=== PATIENT | male | born 1940 | race Caucasian/White ===

== ENCOUNTER → 2022-01-29 | Outpatient (CLI) | payer SELFPAY, OTHER ==
--- NOTE | 2022-01-29 09:40 | RAD_ITS ---
INDICATION: exterminator use of Amiodarone EXAMINATION/TECHNIQUE: X-RAY - XR Chest 2 Views COMPARISON: None. FINDINGS: LINES/DEVICES: None. LUNGS: Peribronchial cuffing and bilateral hilar prominence is seen. No evidence of areas of for peripheral consolidation, biapical prominence but no evidence of emphysematous changes are seen. No evidence of prominent interstitial changes is seen. The bronchovascular and interstitial lung markings are unremarkable, no evidence of focal lung infiltrate or consolidation. No evidence of parenchymal contusion or pneumothorax. MEDIASTINUM AND CARDIOVASCULAR STRUCTURES: Cardiac silhouette is within upper limits of normal, would recommend correlation with prior studies whenever they become available and follow-up evaluation. BONES AND SOFT TISSUES: Degenerative bone changes.. RAD/Chest PA and Lateral IMPRESSION: No evidence of significant cardiomegaly, no evidence of prominent interstitial lung changes, recommend correlation with pre treatment chest xrays when they become available. Electronically Signed: Abran Foote MD at 12:38 EDT ,
[2022-01-29 12:11] LABS: Anion Gap 7 (5-15); BUN 31 mg/dL (7-18); BUN/Creat Ratio 21.7 RATIO (10-20); Chloride 105 mmol/L (98-107); Creatinine, Serum 1.43 mg/dL (0.70-1.30); EST Glomerular Filtration Rate 51 mL/min (>60); Est Glom Filt Rate - Afr Amer 61 mL/min (>60); Glucose 74 mg/dL (74-106); Potassium 4.2 mmol/L (3.5-5.1); Sodium Level 143 mmol/L (136-145); T4 Free Direct 1.03 ng/dL (0.76-1.46); Thyroid Stim Hormone (TSH) 2.14 uIU/mL (0.358-3.74)
== END | disposition home or self-care (01) ==
PROVIDERS: Referring Provider Nurse Practitioner Gerontology; Visit Provider Nurse Practitioner Gerontology
DX: Z79.899 Other long term (current) drug therapy (principal)
CPT/HCPCS: 36415; 71046; 80048; 84439; 84443

== ENCOUNTER → 2022-04-16 | Outpatient (CLI) | payer OTHER, SELFPAY ==
[2022-04-16 11:22] LABS: Anion Gap 5 (5-15); BUN 29 mg/dL (7-18); BUN/Creat Ratio 23.2 RATIO (10-20); Calcium,Total 9.1 mg/dL (8.5-10.1); Chloride 106 mmol/L (98-107); Creatinine, Serum 1.25 mg/dL (0.70-1.30); EST Glomerular Filtration Rate 59 mL/min (>60); Est Glom Filt Rate - Afr Amer 71 mL/min (>60); Glucose 74 mg/dL (74-106); Potassium 4.2 mmol/L (3.5-5.1); Sodium Level 139 mmol/L (136-145)
== END | disposition home or self-care (01) ==
LOC: LAB 09:40
PROVIDERS: PCP Family Medicine; Referring Provider Nurse Practitioner Gerontology; Visit Provider Nurse Practitioner Gerontology
DX: I42.8 Other cardiomyopathies (principal)
CPT/HCPCS: 36415; 80048

== ENCOUNTER 2022-05-02 09:14 | Outpatient (CLI) | payer SELFPAY, OTHER ==
--- NOTE | 2022-05-02 09:17 | ECHOD_ITS ---
Version 2 Reason For Study: CMP Procedure This was a 2D Doppler, Color Flow transthoracic echocardiogram. Myocardial strain analysis was performed in this exam to aid in the assessment of cardiac function. Exam performed in department. Left Ventricle Normal LV size. Left ventricular systolic function is normal. The estimated ejection fraction is 60 %. No regional wall motion abnormalities noted. Right Ventricle Normal RV size. Normal systolic function. Atria Normal left atrium. Normal right atrium. Mitral Valve Normal mitral valve. Tricuspid Valve Normal tricuspid valve. Mild tricuspid valve insufficiency. Pulmonary artery systolic pressure is 27 mmHg. Aortic Valve Normal aortic valve. Trisinus/trileaflet aortic valve. Pulmonic Valve Normal pulmonic valve. Great Vessels Normal aortic root. The pulmonary artery is normal size. Normal inferior vena cava. Pericardium/Pleural No pericardial effusion. MMode/2D Measurements & Calculations LVIDd: 5.9 cm IVSd: 0.98 cm LAV(MOD-bp): 51.2 ml LVIDs: 4.3 cm LVPWd: 0.92 cm LAV(MOD-bp) Indexed: 30.5 ml/m2 RVDd: 4.8 cm FS: 28.2 % LAV(MOD-sp2): 65.3 ml LAV(MOD-sp4): 37.8 ml SV(MOD-sp4): 68.8 ml SV(sp4-el): 66.9 ml LVAd ap4: 37.6 cm2 LVLd ap4: 9.0 cm EDV(MOD-sp4): 133.6 ml EDV(sp4-el): 133.8 ml LVAs ap4: 24.7 cm2 LVLs ap4: 7.7 cm ESV(MOD-sp4): 64.8 ml ESV(sp4-el): 66.9 ml EF(MOD-sp4): 51.5 % EF(sp4-el): 50.0 % LA A4 area: 16.5 cm2 LA dimension(2D): 4.2 cm RA A4 area: 17.9 cm2 Time Measurements MV dec time: 0.36 sec Doppler Measurements & Calculations MV E max tommy: 56.5 cm/sec Lat Peak E' Tommy: 6.1 cm/sec Med Peak E' Tommy: 4.7 cm/sec MV A max tommy: 59.4 cm/sec E/E' lat: 9.3 E/E' med: 12.1 MV E/A: 0.95 MV V2 max: 72.7 cm/sec MV dec slope: 159.4 cm/sec2 Ao V2 max: 122.4 cm/sec MV max P.1 mmHg Ao max P.0 mmHg MV V2 mean: 33.8 cm/sec Ao V2 mean: 83.4 cm/sec MV mean P.59 mmHg Ao mean P.2 mmHg MV V2 VTI: 38.6 cm Ao V2 VTI: 27.3 cm LV V1 max: 127.5 cm/sec PA V2 max: 118.0 cm/sec TR max tommy: 240.9 cm/sec LV V1 max P.5 mmHg PA V2 mean: 71.7 cm/sec TR max P.2 mmHg LV V1 mean P.1 mmHg LV V1 mean: 81.8 cm/sec LV V1 VTI: 27.1 cm ECHO/Echo Complete Interpretation Summary Normal LV size. Left ventricular systolic function is normal. The estimated ejection fraction is 60 %. Mild tricuspid valve insufficiency. Pulmonary artery systolic pressure is 27 mmHg. The global longitudinal strain is normal. The global longitudinal strain = -17. 7 % (normal). Compared to previous study, the left ventricular systolic function has improved .. Ordering Physician: Sivan Rebolledo Referring Physician: Sivan Rebolledo Performed By: Caterina Kramer RCS
== END 2022-05-02 23:59 | disposition home or self-care (01) ==
LOC: CVS 09:16
PROVIDERS: PCP Family Medicine; Referring Provider Nurse Practitioner Gerontology; Visit Provider Nurse Practitioner Gerontology
DX: I42.8 Other cardiomyopathies (principal)
CPT/HCPCS: 93306

== ENCOUNTER → 2022-06-30 | Outpatient (CLI) | payer OTHER, SELFPAY | END | disposition home or self-care (01) | LOC: PSN 08:28 | PROVIDERS: PCP Family Medicine; Visit Provider Nurse Practitioner Gerontology | DX: I48.11 Longstanding persistent atrial fibrillation (principal); R00.1 Bradycardia, unspecified | CPT/HCPCS: 93225; 93226 ==

== ENCOUNTER → 2022-10-22 | Outpatient (CLI) | payer SELFPAY, OTHER ==
--- NOTE | 2022-10-22 08:34 | ECHOD_ITS ---
Reason For Study: Cardiomyopathy Procedure This was a 2D Doppler, Color Flow transthoracic echocardiogram. Exam performed in department. Left Ventricle Normal LV size. Mild concentric left ventricular hypertrophy. Left ventricular systolic function is normal. The estimated ejection fraction is 55 %. Stage 1 diastolic dysfunction. No regional wall motion abnormalities noted. Right Ventricle Normal RV size. Normal systolic function. Atria Normal left atrium. Normal right atrium. Bubble contrast study negative for right to left interatrial shunt. Mitral Valve Normal mitral valve. Tricuspid Valve Normal tricuspid valve. Mild tricuspid valve insufficiency. Pulmonary artery systolic pressure is 40 mmHg. Aortic Valve Trisinus/trileaflet aortic valve. Pulmonic Valve Normal pulmonic valve. Great Vessels Normal aortic root. Pericardium/Pleural No pericardial effusion. Medication 22 gauge I.V. with prn adaptor inserted into right arm. Performed a rapid injection of agitated mix of 9 cc saline and 1cc air to assess for atrial septal defect. MMode/2D Measurements & Calculations LVIDd: 5.2 cm IVSd: 1.4 cm Ao root diam: 3.8 cm LVIDs: 4.0 cm LVPWd: 1.2 cm LA dimension: 4.3 cm RVDd: 4.6 cm FS: 24.4 % LAV(MOD-bp): 46.8 ml LVAd ap4: 34.9 cm2 SV(MOD-sp4): 64.1 ml LAV(MOD-bp) Indexed: 27.9 ml/m2 LVLd ap4: 8.2 cm LAV(MOD-sp2): 51.3 ml EDV(MOD-sp4): 119.9 ml LAV(MOD-sp4): 40.7 ml EDV(sp4-el): 125.7 ml LVAs ap4: 21.5 cm2 LVLs ap4: 6.9 cm ESV(MOD-sp4): 55.7 ml ESV(sp4-el): 56.6 ml EF(MOD-sp4): 53.5 % EF(sp4-el): 55.0 % SV(sp4-el): 69.2 ml LA A4 area: 15.9 cm2 RA A4 area: 15.9 cm2 Time Measurements MV dec time: 0.21 sec Doppler Measurements & Calculations MV E max tommy: 43.8 cm/sec Lat Peak E' Tommy: 7.6 cm/sec Med Peak E' Tommy: 4.3 cm/sec MV A max tommy: 66.6 cm/sec E/E' lat: 5.8 E/E' med: 10.2 MV E/A: 0.66 MV V2 max: 68.3 cm/sec MV P1/2t max tommy: 42.0 cm/sec Ao V2 max: 124.0 cm/sec MV max P.9 mmHg MV P1/2t: 69.1 msec Ao max P.2 mmHg MV V2 mean: 30.7 cm/sec Ao V2 mean: 81.4 cm/sec MV mean P.45 mmHg MV dec slope: 177.8 cm/sec2 Ao mean P.0 mmHg MV V2 VTI: 25.3 cm MVA(P1/2t): 3.2 cm2 Ao V2 VTI: 30.2 cm AV (velocity ratio): 0.61 LV V1 max: 90.0 cm/sec PA V2 max: 149.3 cm/sec LV V1 max P.2 mmHg PI dec slope: 84.9 cm/sec2 LV V1 mean P.8 mmHg LV V1 mean: 63.9 cm/sec LV V1 VTI: 18.4 cm TR max tommy: 306.7 cm/sec TR max P.6 mmHg ECHO/Echo Complete Interpretation Summary Normal LV size. Left ventricular systolic function is normal. The estimated ejection fraction is 55 %. Bubble contrast study negative for right to left interatrial shunt. Mild concentric left ventricular hypertrophy. Stage 1 diastolic dysfunction. Pulmonary artery systolic pressure is 40 mmHg. Ordering Physician: Sivan Rebolledo Referring Physician: Sivan Rebolledo Performed By: Mika Garcia RCS
== END | disposition home or self-care (01) ==
LOC: CVS 08:30
PROVIDERS: PCP Family Medicine; Referring Provider Nurse Practitioner Gerontology; Visit Provider Nurse Practitioner Gerontology
DX: I42.8 Other cardiomyopathies (principal); I50.22 Chronic systolic (congestive) heart failure; I48.11 Longstanding persistent atrial fibrillation
CPT/HCPCS: 93306; A4216

== ENCOUNTER → 2022-10-27 | Outpatient (CLI) | payer OTHER, SELFPAY | END | disposition home or self-care (01) | LOC: PSN 08:48 | PROVIDERS: PCP Family Medicine; Referring Provider Nurse Practitioner Gerontology; Visit Provider Nurse Practitioner Gerontology | DX: R00.1 Bradycardia, unspecified (principal); I48.11 Longstanding persistent atrial fibrillation | CPT/HCPCS: 93225; 93226 ==

== ENCOUNTER → 2023-03-20 | Outpatient (CLI) | payer SELFPAY, OTHER ==
--- NOTE | 2023-03-20 09:50 | RAD_ITS ---
STUDY: XR Chest 2 Views 03/20/2023 9:49 AM REASON FOR EXAM: Male, 82 years old. for Cardioversion COMPARISON: 01/29/2022 TECHNIQUE: XR Chest 2 Views FINDINGS: There is no demonstrated pleural abnormality. Enlarged heart size. Normal mediastinum. Normal kalyani. Prominent appearing increased interstitial lung markings. Normal visualized pulmonary arteries. There is atherosclerotic calcification of the aortic arch with tortuosity. There are diffuse degenerative changes of the visualized thoracic spine. There is degenerative osteoarthritis of the bilateral shoulders. There are no acute findings of the upper abdomen. RAD/Chest PA and Lateral IMPRESSION: There are no acute findings. Electronically Signed: Olayinka Carreon MD at 14:18 EDT ,
[2023-03-20 10:17] LABS: Hematocrit 40.9 % (40-54); Hemoglobin 12.8 g/dL (13.0-16.5); Mean Corp Hgb Conc 31.3 g/dL (32-36); Mean Platelet Vol. 9.8 fl (6.2-12.0); Platelet Count 248 K/mm3 (150-450); RBC Distribution Width CV 14.5 % (11.6-14.6); RBC Distribution Width SD 51.4 fl (35.1-43.9); Red Blood Count 4.26 M/mm3 (4.6-6.2); White Blood Count 7.3 K/mm3 (4.4-11.0)
[2023-03-20 10:55] LABS: Anion Gap 4 (5-15); BUN 32 mg/dL (7-18); BUN/Creat Ratio 27.1 RATIO (10-20); Calcium,Total 8.7 mg/dL (8.5-10.1); Chloride 109 mmol/L (98-107); Creatinine, Serum 1.18 mg/dL (0.70-1.30); EST Glomerular Filtration Rate 63 mL/min (>60); Est Glom Filt Rate - Afr Amer 76 mL/min (>60); Glucose 76 mg/dL (74-106); Potassium 4.3 mmol/L (3.5-5.1); Sodium Level 139 mmol/L (136-145)
== END | disposition home or self-care (01) ==
PROVIDERS: PCP Family Medicine; Referring Provider Nurse Practitioner Family; Visit Provider Nurse Practitioner Family
DX: I42.8 Other cardiomyopathies (principal); I50.22 Chronic systolic (congestive) heart failure; I48.11 Longstanding persistent atrial fibrillation; Z79.899 Other long term (current) drug therapy
CPT/HCPCS: 36415; 71046; 80048; 85027

== ENCOUNTER → 2023-03-26 | Day surgery (SDC) | payer SELFPAY, OTHER ==
[2023-03-25 08:10] VITALS: BMI 23.1
--- NOTE | 2023-03-26 13:33 | PCM.OP.PRO ---
Procedure Report Date of Procedure: 03/26/23 CONSCIOUS SEDATION REPORT DATE OF SERVICE: March 26, 2023 BRIEF HISTORY OF PRESENT ILLNESS: The patient is an 83-year-old male who presented to [facility] for elective outpatient cardioversion due to underlying atrial fibrillation. The patient denied any prior anesthetic complications. He has never been diagnosed with COPD, asthma or obstructive sleep apnea. The patient is systemically anticoagulated on Eliquis. His last surface echocardiogram demonstrated an ejection fraction of approximately 55%. PHYSICAL EXAMINATION: VITAL SIGNS: Reviewed and were acceptable. GENERAL: The patient is a male, in no apparent distress, speaking in full sentences. HEENT: Normocephalic, atraumatic. Mucous membranes are moist and pink. Good mouth opening noted. Trachea is midline. CHEST: S1, S2 irregularly irregular. No murmurs, rubs or gallops were noted. LUNGS: Clear to auscultation bilaterally without appreciable wheezes, rales or rhonchi. ABDOMEN: Soft, nontender, nondistended. Positive bowel sounds. EXTREMITIES: There is no clubbing, cyanosis or edema. ASA Class: II DESCRIPTION OF PROCEDURE: After confirmation of informed consent, the patient's anesthesia plan was reviewed in detail. Propofol was chosen. Risks and benefits were reviewed and the patient agreed to proceed. At 1320, the patient was given 40 mg of propofol. The patient achieved an appropriate level of sedation and was given a 200 joule synchronized cardioversion by Dr. Aguilar at the bedside. This was successful in achieving normal sinus rhythm. The patient was monitored until 1333, at which time he reached his baseline mental status and function. The patient tolerated the procedure well. COMPLICATIONS: None ESTIMATED BLOOD LOSS: None RECOMMENDATIONS: Okay to recover in usual fashion. Procedures Pulmonary [id number]: [id number] Con Sedation
--- NOTE | 2023-03-26 16:37 | PCM.OP.PRO ---
Procedure Report Date of Procedure: 03/26/23 DC cardioversion. 83-year-old man with a history of atrial flutter who has been on anticoagulation and presents for DC cardioversion. The patient was seen by Dr. Melissa of the critical care division. Informed consent was obtained. Anterior posterior pads were applied. The patient was then administered 40 mg of intravenous propofol. 200 J of synchronized biphasic energy were applied with prompt reversal to sinus rhythm. Patient tolerated the procedure well. Conclusion: Successful DC cardioversion from atrial fibrillation flutter to sinus rhythm. Follow-up as per office protocol.
== END | disposition home or self-care (01) ==
PROVIDERS: PCP Family Medicine; Referring Provider Internal Medicine Cardiovascular Disease; Visit Provider Internal Medicine Cardiovascular Disease
DX: I48.11 Longstanding persistent atrial fibrillation (principal); I42.8 Other cardiomyopathies; I48.92 Unspecified atrial flutter; Z79.01 Long term (current) use of anticoagulants; Z87.891 Personal history of nicotine dependence
CPT/HCPCS: 92960; 93005; J7040